=== PATIENT | male | born 1995 | race Caucasian/White ===

== ENCOUNTER 2023-02-20 12:41 | Emergency (ER) | payer SELFPAY ==
[2023-02-20] MEDS ORDERED: Amoxicillin/Potassium Clav 875 MG TAB ONE (13:10)
[2023-02-20] MEDS ORDERED: Boostrix 0.5 ML (Tdap) VIAL (>/=7 yrs of age) ONE (13:10)
[2023-02-20] MEDS ORDERED: Ketorolac Tromethamine 60 MG/2 ML VIAL ONE (13:10)
== END 2023-02-20 14:34 | disposition home or self-care (01) ==
LOC: MADERS 12:41
DX: S61.511A Laceration without foreign body of right wrist, initial encounter (principal); F17.220 Nicotine dependence, chewing tobacco, uncomplicated; Z23 Encounter for immunization; W26.9XXA Contact with unspecified sharp object(s), initial encounter
CPT/HCPCS: 12004; 90715; J1885